=== PATIENT | male | born 1950 | race Caucasian/White ===

== ENCOUNTER 2023-09-27 08:00 | Outpatient (CLI) | payer MEDICARE, OTHER | END 2023-09-27 08:01 | disposition home or self-care (01) | LOC: PET 08:00 | PROVIDERS: ATTEND Internal Medicine Hematology & Oncology | DX: C82.11 Follicular lymphoma grade II, lymph nodes of head, face, and neck (principal); Z90.89 Acquired absence of other organs | CPT/HCPCS: 78815; A9552 ==